=== PATIENT | male | born 1965 | race Two or more races ===

== ENCOUNTER 2017-07-11 08:35 | Emergency (ER) | payer MEDICARE ==
[~2017-07-11] VITALS: Ht 170.2 cm; Wt 113.6 kg
[2017-07-11] MEDS ORDERED: NA P133E35 (08:46)
[2017-07-11] MEDS ORDERED: MOM30 PO (08:46)
[2017-07-11 08:54] VITALS: BP 139/89
== END 2017-07-11 09:03 | disposition home or self-care (01) ==
LOC: EMS 08:44
DX: K59.00 Constipation, unspecified (principal); R11.10 Vomiting, unspecified
CPT/HCPCS: 99281

== ENCOUNTER 2018-02-23 09:47 | Emergency (ER) | payer MEDICARE ==
[~2018-02-23] VITALS: Ht 170.2 cm; Wt 95.5 kg
[~2018-02-23 09:47] MED LIST: MOM30 PO; NA P133E35
[2018-02-23 11:45] VITALS: BP 122/79
== END 2018-02-23 11:45 | disposition home or self-care (01) ==
LOC: EMS 09:47
DX: H00.031 Abscess of right upper eyelid (principal)
CPT/HCPCS: 99283